=== PATIENT | female | born 1950 | race Caucasian/White ===

== ENCOUNTER 2016-08-20 10:30 | Observation (INO) | payer MEDICARE, OTHER ==
[~2016-08-20] VITALS: Ht 167.6 cm; Wt 55.6 kg
--- NOTE | ~2016-08-20 | DS ---
PATIENT'S NAME: FOZIA PERKINS [facility] AGE: 66 Y [address] ROOM: [address] [address] [place]: [facility] [place] DATE: 08/20/2016 Discharge Summary DISCHARGE DATE: 08/22/2016 FAMILY PHYSICIAN: Parish Leary MD ATTENDING PHYSICIAN: Parish Leary FINAL DIAGNOSES: 1. Fatigue, probably multifactorial. 2. Weakness, probably multifactorial. 3. Elevated cardiac C-reactive protein. 4. Hypothyroidism, on replacement with abnormal thyroid function tests on admission. HOSPITAL COURSE: The patient was admitted to the hospital because of his symptoms and abnormal labs. She was seen at my request by Dr. Garcia ,independent insurance adjuster. Please see his notes and dictation chart. He reports on the patient's chest x-ray, lab and echocardiogram. The patient improved enough when she was sent home on the date shown. I had to have her seen by the hospitalist on the day of dismissal, Rufus Chand, because I was out of town. Please see his notes on the chart. The patient was dismissed with a little bit of a rash that at begun and placed on Benadryl to follow up in the office. She is dismissed on the med list shown. She is sent out with instructions for diet and activity as tolerated and see me back in a week. PARISH LEARY MD ADVANCED MANUFACTURING ASSOCIATE/modl /[id number] d: 09/06/16 1401 t: 09/08/16 1804, DISCHARGE SUMMARY
--- NOTE | ~2016-08-20 | ENPV ---
Vascular Lower Extremities DVT Study Procedure Demographics Patient Name FOZIA PERKINS Date of Study 08/22/2016 Patient Number [id number] Gender Female Date of 1950 Age 66 Visit Number [id number] Height Accession Number [id number] Weight Room Number G3202 BSA BMI Referring Yojanaalessandra Riosle Benitez MD Physician MD Physician Physician Ordering Physician Director Content Marketing Telemetry Rn Nargis Ward [facility] Conclusions Summary Bilaterally negative for DVT Procedure Type of Study: Veins:Lower Extremities DVT Study, Venous Duplex Lower Extremity Bilateral. - Preliminary reported to:Tamara YODER. Velocities are measured in cm/s ; Diameters are measured in cm Right Lower Extremities DVT Study Measurements Right 2D and Doppler Measurements + + + + +------+------+ + !Location !Visualized!Compressibility!Thrombosis!Signal!Reflux!Reflux ! ! ! ! ! ! ! !(sec) ! + + + + +------+------+ + !GSV Thigh !Yes !Yes !None !Phasic!No ! ! + + + + +------+------+ + !Common !Yes !Yes !None !Phasic!No ! ! !Femoral ! ! ! ! ! ! ! + + + + +------+------+ + !Prox !Yes !Yes !None !Phasic!No ! ! !Femoral ! ! ! ! ! ! ! + + + + +------+------+ + !Mid Femoral!Yes !Yes !None !Phasic!No ! ! + + + + +------+------+ + !Dist !Yes !Yes !None !Phasic!No ! ! !Femoral ! ! ! ! ! ! ! + + + + +------+------+ + !Popliteal !Yes !Yes !None !Phasic!No ! ! + + + + +------+------+ + !Gastroc !Yes !Yes !None !Phasic!No ! ! + + + + +------+------+ + !PTV !Yes !Yes !None !Phasic!No ! ! + + + + +------+------+ + !Peroneal !Yes !Yes !None !Phasic!No ! ! + + + + +------+------+ + Left Lower Extremities DVT Study Measurements Left 2D and Doppler Measurements + + + + +------+------+ + !Location !Visualized!Compressibility!Thrombosis!Signal!Reflux!Reflux ! ! ! ! ! ! ! !(sec) ! + + + + +------+------+ + !GSV Thigh !Yes !Yes !None !Phasic!No ! ! + + + + +------+------+ + !Common !Yes !Yes !None !Phasic!No ! ! !Femoral ! ! ! ! ! ! ! + + + + +------+------+ + !Prox !Yes !Yes !None !Phasic!No ! ! !Femoral ! ! ! ! ! ! ! + + + + +------+------+ + !Mid Femoral!Yes !Yes !None !Phasic!No ! ! + + + + +------+------+ + !Dist !Yes !Yes !None !Phasic!No ! ! !Femoral ! ! ! ! ! ! ! + + + + +------+------+ + !Popliteal !Yes !Yes !None !Phasic!No ! ! + + + + +------+------+ + !Gastroc !Yes !Yes !None !Phasic!No ! ! + + + + +------+------+ + !PTV !Yes !Yes !None !Phasic!No ! ! + + + + +------+------+ + !Peroneal !Yes !Yes !None !Phasic!No ! ! + + + + +------+------+ + Signature dtt: MISSY WISE dtd: 08/22/16 1123 Physician Self Edit
--- NOTE | ~2016-08-20 | CON ---
PATIENT'S NAME: FOZIA BIANCHI [facility] AGE: 66 Y [address] ROOM: [address] [place], [place] [address] [place] [facility] [place]: 08/20/2016 Consultation DISCHARGE DATE: FAMILY PHYSICIAN: PARISH LEARY MD ATTENDING PHYSICIAN: PARISH LEARY DATE OF CONSULTATION: 08/20/2016 REFERRING PHYSICIAN: Kiet García Dear Dr. 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 She caught a cold with mostly runny nose and sneezing, without any fever, cough, or hemoptysis. This lasted about a week and spontaneously got better. After that, she noticed that she was getting to be very tired, chilled, wiped out, and with decreased appetite. She has since then lost about 5 pounds in weight. Three weeks back, her symptoms reoccurred and she is even worse now. Last 2 nights, she has not been sleeping at all because of really bad dreams. She seemed to be getting very thirsty during the night and she is waking up to drink water about 5 times and she also says that she wakes up about 5 times because of her snores. She has no energy and she sleeps a lot and this is all new since June. Prior to that, she was exercising by swimming regularly, but she was unable to tolerate chlorine. She currently does not have any regular structured physical exercise. She has noticed some dizziness as well as some balance problems without any tinnitus. She has no chest pains or shortness of breath. She seemed to be in functional class 2 with no paroxysmal nocturnal dyspnea or orthopnea. She has no history of lightheadedness, dizziness, syncope, presyncope, palpitations, or ankle swelling. The patient has no history of hypertension, diabetes, elevated cholesterol, or tobacco abuse. She has significant family history of premature coronary artery disease in a brother who had an PR at age of 39. She has no history of PR or angina or nitroglycerin use. There is no history of rheumatic fever, heart murmur, heart failure, dilated or enlarged heart, or any diagnosed cardiac arrhythmias. CURRENT MEDICATIONS: Her current list of medications are, 1. Ketotifen eye drops. 2. Zinc sulfate 220 mg every morning. 3. Fish oil. 4. Sulfasalazine 500 mg b.i.d.. PATIENT'S NAME: FOZIA BIANCHI [facility] AGE: 66 Y [address] ROOM: [place] [address] [place] [facility] [place]: 08/20/2016 Consultation DISCHARGE DATE: FAMILY PHYSICIAN: PARISH LEARY MD ATTENDING PHYSICIAN: PARISH LEARY 5. Nature-Throid 130 mg once a day. 6. Asacol 800 mg t.i.d. 7. Cholecalciferol 2000 units a day. 8. vitamins. 9. Probiotic 1 capsule at bedtime. 10. Acetylcysteine 500 mg a day. ALLERGIES: NO KNOWN DRUG ALLERGIES. PAST MEDICAL HISTORY: 1. History of Aris's thyroiditis 7 years ago. 2. Ulcerative colitis. 3. Tonsillectomy and adenoidectomy. SOCIAL HISTORY: The patient is a retired teacher. She is . She denies abusing alcohol or recreational drugs. Appetite is good. Weight has lost. She has lost her appetite recently and she is also not sleeping well as mentioned earlier. FAMILY HISTORY: Positive for premature coronary artery disease with a brother at age of 39 having had an PR. REVIEW OF SYSTEMS: 12-point review of systems revealed, 1. Sinus problems. 2. Corrective lenses. 3. Macular wrinkling. 4. Some blood in the stools because of the colitis and her last colonoscopy was about a year ago. PHYSICAL EXAMINATION: VITAL SIGNS: On examination, her blood pressure is 120/70, heart rate is 80s and regular, respirations are 18, and afebrile. HEENT: Normal. NECK: Supple. No JVD, thyromegaly, lymphadenopathy, or carotid bruit. PMI is not well located. HEART: First and second heart sounds are regular. There are no added sounds or murmurs. CHEST: Clear to auscultation. ABDOMEN: Soft. EXTREMITIES: Reveal no edema. CENTRAL NERVOUS SYSTEM: Intact. ASSESSMENT: PATIENT'S NAME: FOZIA BIANCHI [facility] AGE: 66 Y [address] ROOM: [place] [id number] [place] [facility] [place]: 08/20/2016 Consultation DISCHARGE DATE: FAMILY PHYSICIAN: PARISH LEARY MD ATTENDING PHYSICIAN: PARISH LEARY A 66-year-old female patient with, 1. Significant family history of premature coronary artery disease, not feeling well for the past about 3-4 months or so almost. Her thyroid function tests are abnormal. Her liver function tests are abnormal. Her MCV and MCH are low consistent with mild continued blood loss. 2. The patient has history of Aris's thyroiditis and she seemed to have fairly low TSH at this time. 3. Ulcerative colitis. RECOMMENDATION: Given her very high CRP, we will check her BNP, D-dimer, and also an echocardiogram and coronary artery calcium score. She currently seemed to be asymptomatic from the cardiac standpoint and so we will not pursue this further. Given her history of previous autoimmune disorder and generalized symptoms along with abnormal liver functions, we would consider another autoimmune disorder occurring or flaring up of an existing autoimmune disease plus or minus malignancy. Again, I appreciate this opportunity to participate in the care of Mrs. Bianchi. MD SIMBA MOSQUERA/yessy /[id number] d: 08/21/16 0004 t: 08/26/16 1236, CONSULTATION REPORT
--- NOTE | ~2016-08-20 | CON ---
PATIENT'S NAME: FOZIA PERKINS [facility] AGE: 66 Y [address] ROOM: [place] [address] LOCATION: [facility] [place] ADMIT DATE: 08/20/2016 Consultation DISCHARGE DATE: FAMILY PHYSICIAN: PARISH LEARY MD ATTENDING PHYSICIAN: PARISH LEARY DATE OF CONSULTATION: 08/20/2016 REFERRING PHYSICIAN: Kiet García REFERRING PHYSICIAN: Parish Leary MD. This is a [facility] Nephrology Consultation. REASON FOR CONSULTATION: Hyponatremia. HISTORY OF PRESENT ILLNESS: This is a 66-year-old female patient, who was admitted with hyponatremia with a sodium of 125 prior to admission, elevated liver enzymes while on sulfasalazine for history of ulcerative colitis. The patient does report that she has been on sulfasalazine over the last month due to a switch in prior medication of Asacol HD due to cost. The patient is managed by Dr. Escamilla in [place] for longstanding history of Aris's thyroiditis on natural thyroid supplement. The patient does deny any history of hyponatremia. She does report that she has been feeling quite poorly over the last month to 6 weeks due to weight loss of approximately 5 pounds with generalize malaise. Today, the patient's sodium is 135. Therefore, due to the patient's recent history of hyponatremia with a sodium of 125 on 08/18/2016 at outpatient facility and [address] [facility] García has been asked to provide his input regarding her hyponatremia. PAST MEDICAL HISTORY: As listed above including; 1. Aris thyroiditis. 2. History of ulcerative colitis. 3. Elevated liver enzymes. 4. Iron deficiency anemia. PAST SURGICAL HISTORY: Tonsillectomy. ALLERGIES: NONE TO MEDICATION. PATIENT'S NAME: FOZIA PERKINS [facility] AGE: 66 Y [address] ROOM: [place] [address] LOCATION: [facility] [place] ADMIT DATE: 08/20/2016 Consultation DISCHARGE DATE: FAMILY PHYSICIAN: PARISH LEARY MD ATTENDING PHYSICIAN: PARISH LEARY CURRENT HOME MEDICATIONS: Include; 1. Vitamin D3 2000 units p.o. daily in the morning. 2. Fish oil one tablet daily at bedtime. 3. Allergy eyedrops p.r.n. itching on bilateral eyes daily. 4. Nima probiotic one tablet daily at bedtime. 5. Asacol HD 800 mg p.o. daily. 6. vitamin 1 tablet daily. 7. Pork thyroid 130 mg p.o. daily in the morning. 8. Zinc sulfate 220 mg p.o. daily in the morning. 9. Sulfasalazine 500 mg p.o. twice a day, not taken since 08/18/2016. FAMILY HISTORY: Reviewed and is noncontributory. There is a recent history of diabetes and end-stage renal disease with in her brother. Her mother has Alzheimer's and is currently living. Her father did of lung cancer. She does have a significant family history of Aris's thyroiditis in 2 of her children. SOCIAL HISTORY: She does deny any illicit drug use, smoking or alcohol use. She does live at home with her in [facility]. REVIEW OF SYSTEMS: GENERAL: Complains of fatigue and malaise. A 5 pounds weight loss in last month. EYES: She does report a history of a macular wrinkle. She is set to see public relations studies director in 1 week for repair. NOSE: No epistaxis or rhinorrhea. MOUTH: No gingival bleeding. THROAT: No sore throat, hoarseness or cough. RESPIRATORY: Denies wheezing or hemoptysis. CARDIOVASCULAR: Denies any chest pain, exertional chest pain or shortness of breath. Denies orthopnea. Denies PND. Denies presyncope or syncope. GASTROINTESTINAL: She has had some vague nausea. None present currently. Denies vomiting or diarrhea. She does have colicky pain in the right upper quadrant currently. Does have a history of ulcerative colitis. Denies any new changes in bowel habits. GENITOURINARY: Denies any frequency, urgency, or hesitancy. MUSCULOSKELETAL: Denies any new arthralgias or myalgias. HEMATOLOGICAL: Denies any bruising or easy bleeding. IMMUNOLOGICAL: Denies any recent infections. PSYCHIATRIC: Denies depression or anxiety. LABORATORY DATA: PATIENT'S NAME: FOZIA PERKINS [facility] AGE: 66 Y [address] ROOM: [place] [address] LOCATION: [facility] [place] ADMIT DATE: 08/20/2016 Consultation DISCHARGE DATE: FAMILY PHYSICIAN: PARISH LEARY MD ATTENDING PHYSICIAN: PARISH LEARY Reviewed from office visit on 08/18/2016. Today's labs show WBCs 8.4, hemoglobin 12.5, hematocrit 36.9, MCV is 82.6, platelets 238. Glucose 99, BUN 12, creatinine 0.7, sodium 135, potassium 3.5, chloride is 100, CO2 is 28, calcium 8.1, albumin 2.4. AST is 92, ALT is 161, alkaline phosphatase is 187, total bilirubin is 0.6. CPK is 162, troponin I is less than 0.04. ProBNP is 143, CK-MB is 2.1. T4 is 9, TSH is 0.03, and a free T3 is currently pending. Chest x-ray was performed showing no acute infiltrate. PHYSICAL EXAMINATION: VITAL SIGNS: Blood pressure is 121/64, pulse is 84, respirations 16, temperature is 97.4, and saturations are 97% on room air. GENERAL: On exam, this is a very pleasant, alert and oriented, white female, who appears her approximate stated age, is in no acute distress. HEENT. Her head is normocephalic and atraumatic. Eyes: Pupils are reactive and accommodation. EOMs are intact. Nose is midline mouth no gingival bleeding. Throat is without lymphadenopathy, carotid bruits, or JVD. No thyromegaly. LUNGS: Lung sounds are clear to auscultation anteriorly and posteriorly. Breaths are nonlabored. The patient is on room air. CARDIOVASCULAR: Regular rate and rhythm with no appreciable murmurs, rubs, or thrills. ABDOMEN: Soft with slight tenderness noted in the right upper quadrant. No rebound or tenderness noted. Bowel sounds are positive. EXTREMITIES: Show no signs of pus edema clubbing or cyanosis. NEUROLOGICAL: Cranial nerves 2 through 12 grossly intact. ASSESSMENT AND PLAN: 1. Hyponatremia. This is improved. Today's sodium is 135. We will monitor the patient's intake and outputs as well as check a urine for urine electrolytes. We will also check her serum osmolality. TSH is less than 0.03. The patient has had extensive trouble with her thyroid. We will await further testing for further recommendations. 2. Elevated liver enzymes. The patient has stopped taking her sulfasalazine on 08/18/2016. Liver enzymes appear to be trending down. We will await further information for further recommendations. 3. History of Aris's thyroiditis. The patient is on nature thyroid at this time per PCP. 4. History of iron-deficiency anemia. Her lab results obtained from PCP office. The patient appears to be iron deficient. We will defer to PCP for further management. This patient has been seen and assessed by Dr. García. Her care is being conducted in consultation Dr. García as well as me. We will plan further recommendations as they are forthcoming. PATIENT'S NAME: FOZIA PERKINS [facility] AGE: 66 Y [address] ROOM: [place] [address] LOCATION: [facility] [place] ADMIT DATE: 08/20/2016 Consultation DISCHARGE DATE: FAMILY PHYSICIAN: PARISH LEARY MD ATTENDING PHYSICIAN: PARISH LEARY KEYSHA RANDOLPH DNP, INSIDE FINISHER FOR M MD DAYNA DC/modl /[id number] d: 08/21/16 0151 t: 08/28/16 0913, CONSULTATION REPORT
--- NOTE | ~2016-08-20 | ECHO ---
Transthoracic Echocardiography Report (TTE) Demographics Patient Name FOZIA PERKINS Date of Study 08/21/2016 J Patient Number [id number] Visit Number [id number] Date of 1950 Room Number G3202 Accession Number [id number] Gender Female Age 66 year(s) Referring Raquel Penny MD Forming Mill Operator Leona Benavidez RVT Physician Sapphire Johnson MD Physician Interpreting Jose Ochoa Buttonhole Marker Physician Supervising Ordering Physician Raquel Penny MD, MD/MLP Nurse Stress Asphalt Paver Operator Conclusions Summary Mild concentric left ventricular hypertrophy with normal internal dimensions,EF and WM. Mild mitral annular calcification. Mild tricuspid regurgitation by color Doppler. Procedure Type of Study TTE procedure:2D Echocardiogram, M-Mode, Doppler , Color Doppler. Procedure Date Date: 08/21/2016 Start: 02:18 PM Study Location: Inpatient Portable Technical Quality: Adequate visualization Additional Indications:high history CRP Appropriate Use Criteria: 9 Patient Status: Routine HR: 83 bpm M-Mode/2D Measurements LV Diastolic Dimension: 2.49 cm LV Systolic Dimension: 2.01 cm LV Septum Diastolic: 1.35 cm LV PW Diastolic: 1.31 cm AO Root Dimension: 2.7 cm Cardiac Output: 3.55 l/min AV Cusp Separation: 1.8 cm LA Dimension: 2.6 cm LVOT: 1.9 cm RV Base: 2.31 cm LVOT VTI: 15.1 cm RV Mid: 2.03 cm LV Stroke volume: 42.79 ml RV Length: 5.02 cm TAPSE: 2.05 cm TDI-S': 20.7 cm/s Doppler Measurements AV Peak Velocity: 1.48 m/s MV Peak E-Wave: 0.94 m/s AV Peak Gradient: 8.76 mmHg MV Peak A-Wave: 1.12 m/s AV Mean Gradient: 5 mmHg MV E/A Ratio: 0.84 LVOT Peak Velocity: 0.92 m/s MV P1/2t: 52 msec TR Gradient:16.81 mmHg PV Peak Velocity: 0.94 m/s Estimated RAP:10 mmHg PV Peak Gradient: 3.53 mmHg Estimated RVSP: 27 mmHg Estimated PASP: 26.81 mmHg E' Septal Velocity: 0.05 m/s A' Septal Velocity: 0.11 m/s E' Lateral Velocity: 0.08 m/s A' Lateral Velocity: 0.13 m/s Findings Left Ventricle Mild concentric left ventricular hypertrophy with normal internal dimension,EF and WM. Right Ventricle Normal right ventricle structure and function. Left Atrium Normal left atrial size. Right Atrium Normal right atrial size. Mitral Valve Normal mitral valve structure and function. Aortic Valve Normal aortic valve structure and function. Tricuspid Valve Mild tricuspid regurgitation by color Doppler. Pulmonic Valve Normal pulmonic valve structure and function. Pericardial Effusion No evidence of pericardial effusion. Miscellaneous Visualized portions of the aortic root and ascending aorta appear normal in size. Pleural Effusion No evidence of pleural effusion. Contractility Score LV regional wall motion:(0-Non visualized 1-Normal 2-Hypokinesis 3-Akinesis 4-Dyskinesis 5-Aneurysm) Signature dtt: Gabriela Garcia dtd: 08/21/16 1418 Physician Self Edit
--- NOTE | ~2016-08-20 | CON ---
PATIENT'S NAME: FOZIA PERKINS [facility] AGE: 66 Y [address] ROOM: [place] [address] LOCATION: [facility] [place] ADMIT DATE: 08/20/2016 Consultation DISCHARGE DATE: FAMILY PHYSICIAN: PARISH LEARY MD ATTENDING PHYSICIAN: PARISH LEAYR DATE OF CONSULTATION: 08/21/2016 REQUESTING PHYSICIAN: Parish Leary M.D. CONSULTING PHYSICIAN: José Barriga M.D. REASON FOR CONSULTATION: Inpatient management. HISTORY OF PRESENT ILLNESS: The patient is a 66-year-old female, who was admitted to the hospital with complaints of insomnia, polydipsia, and was found to be hyponatremic as an outpatient. She was admitted to the hospital yesterday and has undergone a workup, which demonstrated an improvement in her sodium, oversuppression of TSH, transaminitis, and hypoalbuminemia. The patient has been seen by Nephrology and Cardiology for the above problems as well as an elevated CRP (by Cardiology). Today, the patient had an ultrasound of her right upper quadrant, which was unremarkable. This was a workup for her transaminitis. Dr. Leary requested that the Hospitalist Group help manage the patient as an inpatient, however, he did prepare her for discharge. I did an extensive review of the chart and I discussed things with the patient, who is relatively healthy, as well as with her family. She endorses approximately 2 years of psychological stress, decreased oral intake, and 25- pound weight loss in recent months. She adheres to a gluten-free diet, though she was never diagnosed with sprue, as she thinks it would help her with her ulcerative colitis, which she does have. She is followed by Dr. Deleon for the ulcerative colitis. She admits to multiple complains of insomnia, polydipsia, and anxiety. REVIEW OF SYSTEMS: All systems have been reviewed and are negative aside from pertinent positives PATIENT'S NAME: FOZIA PERKINS [facility] AGE: 66 Y [address] ROOM: [address] [address] LOCATION: [facility] [place] ADMIT DATE: 08/20/2016 Consultation DISCHARGE DATE: FAMILY PHYSICIAN: PARISH LEARY MD ATTENDING PHYSICIAN: PARISH LEARY mentioned above. PAST MEDICAL HISTORY: Significant for hypothyroidism with difficulty controlled thyroid, ulcerative colitis, and iron deficiency anemia. CURRENT MEDICATIONS: 1. Vitamin D. 2. Fish oil. 3. Allergy eyedrops. 4. Probiotic. 5. The patient recently switched from Asacol to sulfasalazine. 6. vitamin. 7. Pork thyroid 130 mg daily. 8. Zinc sulfate. 9. Sulfasalazine, which the patient was taking instead of Asacol. FAMILY HISTORY: Reviewed and is noncontributory. SOCIAL HISTORY: Negative for any toxic habits. PHYSICAL EXAMINATION: VITAL SIGNS: Temperature 97.3, pulse 95, respirations 18, blood pressure 134/70, and saturating 97% on room air. GENERAL: Appears as a malnourished, middle-aged female, in no acute distress. PSYCHIATRIC: Significant for poor eye contact, depressed mood, and very negative affect. NEUROLOGIC: Nonfocal. EYES: Show pupils are equal and reactive to light. LYMPHATIC: Shows no cervical lymphadenopathy. ENDOCRINE: Shows no thyromegaly. LUNGS: Clear to auscultation. HEART: Heart rate is regular with no appreciable murmurs, gallops, or rubs. VASCULAR: 2+ pedal pulses. MUSCULOSKELETAL: Unremarkable. LABORATORY DATA: Studies performed in the hospital, remarkable was an initial potassium of 135, AST of 92, ALT of 161, alkaline phosphatase of 187, TSH of 0.030. Unremarkable CBC. Low iron count. Negative urine. Sodium , potassium , urine osmolality 138, and her albumin is 2.2. IMPRESSION AND RECOMMENDATIONS: PATIENT'S NAME: FOZIA PERKINS [facility] AGE: 66 Y [address] ROOM: [address] [address] LOCATION: [facility] [place] ADMIT DATE: 08/20/2016 Consultation DISCHARGE DATE: FAMILY PHYSICIAN: PARISH LEARY MD ATTENDING PHYSICIAN: PARISH LEARY This is a complicated 66-year-old female, who was admitted with multiple medical problems. At this point, I would recommend the followin. The patient would like to go home and I think that is reasonable. I explained to her that her symptomatology is consistent at least in part with stress, causing weight loss and other issues. I recommended to her that she discuss possibility of working her up for depression and starting pharmacologic therapy with Dr. Leary. 2. Protein-calorie malnutrition. This appears to be significant. We will check the patient's prealbumin and Dr. Leary can follow that up. I had an honest discussion with her about need to improve her oral intake and we decided that she should stop her gluten-free diet and liberalize the diet as much as possible. 3. Mild iron deficiency anemia. I will defer to Dr. Leary to treat that. 4. Iatrogenic hyperthyroidism. I recommended the patient change her pork thyroid to 65 mg for now and then follow up with Dr. Leary. 5. Hypoalbuminemia. We will add a proalbumin. If this is indeed a nutritionally induced process, it would explain her hyponatremia as a result of beer potomania. This can be followed as an outpatient. 6. Transaminits is stable and may be worked up the the patients primary gastroebterologist 6. Additional management: will defer to primary care provider. Time dedicated to this patient's encounter is 35 minutes. MD EVARISTO SOLIZ/yessy /[id number] d: 08/21/16 2358 t: 08/26/16 1239, CONSULTATION REPORT
--- NOTE | 2016-08-20 11:30 | NUR ---
Pt is 66 y/o female admit for hyponatremia for . Pt alert and oriented x3. Resides at home with . Pt states she hasn't felt well for a couple of weeks with fatigue,chills,lightheadedness. Denies fever. hx sinus problems,colitis,occas diarrhea/constipation. Pt came from office this morning.
[2016-08-20] MEDS ORDERED: ALLERGY EYE DRO10 ML OPHTH (12:05)
[2016-08-20] MEDS ORDERED: ZINCATE (50 MG220 MG PO (12:06)
[2016-08-20] MEDS ORDERED: FISH OIL 1,2001 EACH PO (12:06)
[2016-08-20] MEDS ORDERED: AZULFIDINE500 MG PO (12:07)
[2016-08-20] MEDS ORDERED: ASACOL HD800 MG PO (12:08)
[2016-08-20] MEDS ORDERED: PRENATAL 1+1)(P1 TAB PO (12:09)
[2016-08-20] MEDS ORDERED: VITAMIN D-32000 UNI1 PO (12:09)
[2016-08-20] MEDS ORDERED: MEGA PROBIOTIC1 EACH PO (12:10)
[2016-08-20] MEDS ORDERED: NAC500 MG PO (12:12)
[2016-08-20 12:56] LABS: BASOPHIL % 0.5 %; EOSINOPHIL # 0.6 K/uL (0.0-0.5); EOSINOPHIL % 7.1 %; HEMATOCRIT 36.9 % (33.0-46.0); HEMOGLOBIN 12.5 g/dL (10.0-15.0); IMMATURE GRANULOCYTE # 0.1 K/uL (0.0-0.3); IMMATURE GRANULOCYTE % 0.6 %; LYMPHOCYTE % 12.4 %; MCHC 33.9 gm/dL (32.0-36.5); MCV 82.6 fl (83.0-98.0); MONOCYTE # 0.6 K/uL (0.0-1.0); MONOCYTE % 7.4 %; MPV 10.6 fl (9.4-12.4); NRBC % 0 /100WBC (0-0.00); PLATELET COUNT 238 K/uL (150-450); RBC 4.47 M/uL (3.50-5.50); RDW-CV 14.3 % (11.9-14.6); WBC 8.4 K/uL (4.0-11.0)
[2016-08-20 13:18] LABS: ALBUMIN 2.4 gm/dL (3.5-5.0); ALK PHOS 187 IU/L (33-138); ALT 161 IU/L (12-78); ANION GAP 14.5 (10.0-19.0); AST 92 IU/L (10-40); BLOOD UREA NITROGEN 12 mg/dL (6-24); CALCIUM 8.1 mg/dL (8.5-10.5); CHLORIDE 100 mMol/L (96-110); CO2 24 mMol/L (22-32); CPK 162 IU/L (21-215); CREATININE 0.7 mg/dL (0.5-1.1); ESTIMATED GFR (MDRD EQUATION) > 60; POTASSIUM 3.5 mMol/L (3.7-5.1); SODIUM 135 mMol/L (135-145); TOTAL BILIRUBIN 0.6 mg/dL (0.0-1.5); TOTAL PROTEIN 6.6 g/dL (6.0-8.4)
[2016-08-20 16:09] LABS: BILIRUBIN URINE NEGATIVE (NEGATIVE); BLOOD URINE NEGATIVE /UL (NEGATIVE); COLOR URINE YELLOW (YELLOW); GLUCOSE URINE NEGATIVE (NEGATIVE); KETONE URINE NEGATIVE (NEGATIVE); LEUKOCYTES URINE NEGATIVE /UL (NEGATIVE); NITRITE URINE NEGATIVE (NEGATIVE); PROTEIN URINE NEGATIVE (NEGATIVE); SPEC GRAVITY URINE 1.005 (1.003-1.035); TURBIDITY URINE CLEAR (CLEAR); UROBILINOGEN URINE NORMAL (NORMAL)
--- NOTE | 2016-08-20 17:01 | NUR ---
Significant Event: Patient admitted at 1100. Denies pain/nausea at this time. Up with standby assist due to lightheadedness. Strict I&O and standing daily weight. Patient's last sodium noted at 135. Patient resting comfortably at this time. at bedside. Follow up: Continue to monitor.
--- NOTE | 2016-08-21 03:39 | NUR ---
Significant Event: Pt is alert and oriented. VSS on RA. IV to the L)hand SL. No complaints of pain or nausea. 2L fluid restriction. Pt had two bottles of pills in room, placed them in a bag in her box in the med room until someone can bring home. Ambulates independently in room. Still need a UA. Follow Up: Continue to monitor.
[2016-08-21 05:45] LABS: ALBUMIN 2.2 gm/dL (3.5-5.0); ANION GAP 14.7 (10.0-19.0); BLOOD UREA NITROGEN 13 mg/dL (6-24); CHLORIDE 101 mMol/L (96-110); CO2 23 mMol/L (22-32); CREATININE 0.6 mg/dL (0.5-1.1); ESTIMATED GFR (MDRD EQUATION) > 60; PHOSPHORUS 2.9 mg/dL (2.5-4.9); POTASSIUM 3.7 mMol/L (3.7-5.1); SODIUM 135 mMol/L (135-145)
--- NOTE | 2016-08-21 18:30 | NUR ---
Significant Event: Patient up with standby assist. Was NPO after breakfast and had an ultrasound, CT scan, and an echocardiogram after lunch. Patient did have ativan 0.5 mg times one this a.m. for complaints of anxiety--partial relief noted. When nurse went to call Dr. Leary back regarding results of tests patient had just had, I received an order to have Dr. Barriga with the hospitalist service follow patient. Spoke with Dr. Barriga and he said he would be over to see her tonight. Follow up: Continue to monitor.
--- NOTE | 2016-08-22 03:50 | NUR ---
Significant Event: Pt is alert and oriented. VSS on RA. IV to the R)wrist SL. Ambulates independently in room. Daily weight. Strict I&O with 2L fluid restriction. Home meds in bag in med room box with sticker. Follow Up: Discharge home today. Continue to monitor
[2016-08-22 06:10] LABS: ANION GAP 10.9 (10.0-19.0); BLOOD UREA NITROGEN 11 mg/dL (6-24); CALCIUM 7.8 mg/dL (8.5-10.5); CHLORIDE 105 mMol/L (96-110); CO2 25 mMol/L (22-32); CREATININE 0.7 mg/dL (0.5-1.1); ESTIMATED GFR (MDRD EQUATION) > 60; PHOSPHORUS 2.8 mg/dL (2.5-4.9); POTASSIUM 3.9 mMol/L (3.7-5.1); SODIUM 137 mMol/L (135-145)
--- NOTE | 2016-08-22 15:43 | NUR ---
Significant Event: Pt up ad steve in room. Showered this am then noted a large red/raised rash to back and bilaterial arms, slightly itchy. MD notified, Umer PRN itching. PE protocol and ultrasound done. Possible dc to home later today. Follow up:
[2016-08-22] MEDS ORDERED: NATURE-THROID65 MG PO (19:31)
--- NOTE | 2016-08-22 23:59 | NUR ---
At 200908/22/16 dismissal instructions were given to the patient and given the KRAMES for prevention of DVT. Patient had no further questions or concerns. IV was taken out at 2014. Vital signs were taken. Denied pain. Benadryl given at 1906. Taken out per wheelchair and discharged to home per per private car.
== END 2016-08-22 20:20 | disposition disaster alternative care site (69) ==
LOC: GMSU 10:32
PROVIDERS: Internal Medicine Nephrology; ADMIT Family Medicine
DX: E87.1 Hypo-osmolality and hyponatremia (principal); R91.8 Other nonspecific abnormal finding of lung field; K51.90 Ulcerative colitis, unspecified, without complications; D50.9 Iron deficiency anemia, unspecified; E03.9 Hypothyroidism, unspecified; E05.80 Other thyrotoxicosis without thyrotoxic crisis or storm; E88.09 Other disorders of plasma-protein metabolism, not elsewhere classified; G47.00 Insomnia, unspecified; R63.1 Polydipsia; F41.9 Anxiety disorder, unspecified; Z86.39 Personal history of other endocrine, nutritional and metabolic disease; Z98.890 Other specified postprocedural states
CPT/HCPCS: G0378; G0379; G8978; G8979; G8980; Q9967